=== PATIENT | male | born 1950 | race Caucasian/White ===

== ENCOUNTER 2017-07-31 21:41 | Inpatient (IN) | payer MEDICARE ==
[~2017-07-31] VITALS: Ht 188 cm; Wt 124.7 kg
[2017-07-31] MEDS ORDERED: ENOXAPARIN SOD 80 MG/0.8ML SYRINGE SC ONE (22:15)
[2017-07-31] MEDS ORDERED: IOHEXOL 350 MG/ML 100ML IJ ONE (22:22)
[2017-07-31 22:33] LABS: Basophils # (auto) 0 uL; Basophils % (auto) 0.5 % (0.0-2.0); Eosinophils # (auto) 0.3 uL; Eosinophils % (auto) 4.6 % (0.0-7.0); Hematocrit 36.1 % (41.0-53.0); Hemoglobin 12.8 g/dL (13.5-17.5); Lymphocytes # (auto) 1.4 uL; Lymphocytes % (auto) 20.3 % (10.0-50.0); Mean Corpuscular Hemoglobin 32.7 pg (28.0-32.0); Mean Corpuscular Hgb Conc. 35.5 g/dL (32.0-36.0); Monocytes # (auto) 0.7 uL; Monocytes % (auto) 10.2 % (0.0-12.0); Neutrophils # (auto) 4.3 uL; Neutrophils % (auto) 64.4 % (37.0-80.0); Nucleated Red Blood Cells % 0.2 %; Platelet Count (auto) 204 10^3/uL (140-450); Red Blood Cells 3.93 10^6/uL (4.5-5.90); Red Cell Distribution Width 12.5 % (11.8-14.3); White Blood Cell 6.7 10^3/uL (4.4-10.8)
[2017-07-31 22:43] LABS: Alanine Aminotransferase 58 U/L (16-61); Albumin 3.3 g/dL (3.4-5.0); Alkaline Phosphatase 71 U/L (45-117); Anion Gap 6 (5-15); Aspartate Aminotransferase 39 U/L (15-37); Bilirubin, Total 0.4 mg/dL (0.2-1.0); Blood Urea Nitrogen 15 mg/dL (7-18); Calcium 8.8 mg/dL (8.5-10.1); Carbon Dioxide 27 mmol/L (21-32); Chloride 103 mmol/L (98-107); GFR African American 111 mL/min; GFR Non-African American 92 mL/min; Glucose 107 mg/dL (74-106); Potassium 3.7 mmol/L (3.5-5.1); Sodium 136 mmol/L (136-145); Total Protein 7.2 g/dL (6.4-8.2)
[2017-07-31 22:53] LABS: INR 0.94 (0.9-1.15); Partial Thromboplastin Time 25.5 sec (22.64-33.71); Prothrombin Time 10.2 sec (9.37-12.3)
[2017-08-01] MEDS ORDERED: HEPARIN DRIP/D5W 100UNITS/ML 250 ML IV SCH (01:50)
[2017-08-01] MEDS ORDERED: HEPARIN SODIUM (PORCINE) 5000 UNITS/ML 1ML VIAL IV ONE (02:00)
[2017-08-01 02:16] LABS: Basophils # (auto) 0.1 uL; Basophils % (auto) 1.2 % (0.0-2.0); Eosinophils # (auto) 0.3 uL; Eosinophils % (auto) 4.3 % (0.0-7.0); Hematocrit 36.7 % (41.0-53.0); Hemoglobin 12.6 g/dL (13.5-17.5); Lymphocytes # (auto) 1.8 uL; Lymphocytes % (auto) 25.8 % (10.0-50.0); Mean Corpuscular Hemoglobin 31.4 pg (28.0-32.0); Mean Corpuscular Hgb Conc. 34.3 g/dL (32.0-36.0); Mean Corpuscular Volume 91.5 fL (80.0-100.0); Monocytes # (auto) 0.8 uL; Monocytes % (auto) 11.2 % (0.0-12.0); Neutrophils % (auto) 57.5 % (37.0-80.0); Nucleated Red Blood Cells % 0.2 %; Platelet Count (auto) 204 10^3/uL (140-450); Red Blood Cells 4.01 10^6/uL (4.5-5.90); Red Cell Distribution Width 12.3 % (11.8-14.3)
[2017-08-01] MEDS ORDERED: ACETAMINOPHEN 500 MG TAB PO PRN (02:30)
[2017-08-01] MEDS ORDERED: HYDROcodone-ACET 5/325MG TAB PO PRN (02:30)
[2017-08-01] MEDS ORDERED: ONDANSETRON HCL 4 MG/2 ML VIAL IV PRN (02:30)
[2017-08-01 02:47] LABS: INR 0.95 (0.9-1.15); Partial Thromboplastin Time 29.9 sec (22.64-33.71); Prothrombin Time 10.4 sec (9.37-12.3)
[2017-08-01 04:15] VITALS: BP 142/85
[2017-08-01] MEDS ORDERED: LISI-646 PO (05:37)
[2017-08-01] MEDS ORDERED: CLIN1CAP4 PO (05:37)
[2017-08-01 05:47] VITALS: BP 142/85
[2017-08-01] MEDS: CLINDAMYCIN HCL 150 MG CAP PO SCH ×3 (07:01→22:00)
[2017-08-01 07:13] LABS: Urine Bacteria NONE SEEN /hpf (None Seen); Urine Blood 2+ /uL (Negative); Urine Mucus FEW (None Seen); Urine Specific Gravity 1.023 (1.001-1.035); Urine WBC 2 /hpf (0 - 3)
[2017-08-01 09:00] VITALS: BP 143/82
[2017-08-01 09:01] LABS: INR 0.96 (0.9-1.15); Prothrombin Time 10.5 sec (9.37-12.3)
[2017-08-01 09:12] LABS: Partial Thromboplastin Time 50.9 sec (22.64-33.71)
[2017-08-01] MEDS: LISINOPRIL 20 MG TAB PO SCH (09:38)
[2017-08-01 13:00] VITALS: BP 132/78
[2017-08-01 14:22] LABS: INR 0.95 (0.9-1.15); Prothrombin Time 10.4 sec (9.37-12.3)
[2017-08-01] MEDS: HEPARIN DRIP/D5W 100UNITS/ML 250 ML IV SCH (14:59)
[2017-08-01 17:06] VITALS: BP 136/78
[2017-08-01 20:17] LABS: INR 0.95 (0.9-1.15); Partial Thromboplastin Time 50.7 sec (22.64-33.71); Prothrombin Time 10.4 sec (9.37-12.3)
[2017-08-01 22:00] VITALS: BP 141/50
[2017-08-02] MEDS: HEPARIN DRIP/D5W 100UNITS/ML 250 ML IV SCH ×2 (01:57→11:05)
[2017-08-02 02:55] LABS: Basophils # (auto) 0 uL; Basophils % (auto) 0.7 % (0.0-2.0); Eosinophils # (auto) 0.3 uL; Eosinophils % (auto) 4.5 % (0.0-7.0); Hematocrit 38.4 % (41.0-53.0); Hemoglobin 13.1 g/dL (13.5-17.5); Lymphocytes # (auto) 2.3 uL; Lymphocytes % (auto) 29.8 % (10.0-50.0); Mean Corpuscular Hemoglobin 31.4 pg (28.0-32.0); Mean Corpuscular Hgb Conc. 34.1 g/dL (32.0-36.0); Mean Corpuscular Volume 92.1 fL (80.0-100.0); Monocytes # (auto) 0.6 uL; Monocytes % (auto) 8.1 % (0.0-12.0); Neutrophils # (auto) 4.3 uL; Neutrophils % (auto) 56.9 % (37.0-80.0); Platelet Count (auto) 205 10^3/uL (140-450); Red Blood Cells 4.17 10^6/uL (4.5-5.90); Red Cell Distribution Width 12.8 % (11.8-14.3); White Blood Cell 7.6 10^3/uL (4.4-10.8)
[2017-08-02 03:04] LABS: INR 0.95 (0.9-1.15); Partial Thromboplastin Time 58.4 sec (22.64-33.71); Prothrombin Time 10.4 sec (9.37-12.3)
[2017-08-02 05:12] VITALS: BP 141/84
[2017-08-02] MEDS: CLINDAMYCIN HCL 150 MG CAP PO SCH ×3 (05:35→21:29)
[2017-08-02 09:00] VITALS: BP 138/78
[2017-08-02] MEDS ORDERED: APIXABAN 5 MG TAB PO SCH ×2 (09:15→12:00)
[2017-08-02] MEDS: LISINOPRIL 20 MG TAB PO SCH (09:17)
[2017-08-02] MEDS ORDERED: VANCOMYCIN 1GM/250ML 250 ML IV ONE (10:00)
[2017-08-02 12:00] VITALS: BP 123/71
[2017-08-02 13:47] LABS: INR 0.96 (0.9-1.15); Partial Thromboplastin Time 57.4 sec (22.64-33.71); Prothrombin Time 10.5 sec (9.37-12.3)
[2017-08-02 20:37] LABS: INR 0.96 (0.9-1.15); Partial Thromboplastin Time 59.6 sec (22.64-33.71); Prothrombin Time 10.5 sec (9.37-12.3)
[2017-08-02 23:07] VITALS: BP 123/74
[2017-08-03] MEDS: HEPARIN DRIP/D5W 100UNITS/ML 250 ML IV SCH ×2 (02:09→10:23)
[2017-08-03 04:30] VITALS: BP 123/68
[2017-08-03] MEDS: CLINDAMYCIN HCL 150 MG CAP PO SCH ×3 (05:56→21:42)
[2017-08-03 06:17] LABS: INR 0.96 (0.9-1.15); Prothrombin Time 10.5 sec (9.37-12.3)
[2017-08-03 06:23] LABS: Partial Thromboplastin Time 73.7 sec (22.64-33.71)
[2017-08-03 09:00] VITALS: BP 137/84
[2017-08-03 09:56] LABS: INR 0.97 (0.9-1.15); Prothrombin Time 10.6 sec (9.37-12.3)
[2017-08-03 10:05] LABS: Partial Thromboplastin Time 74.5 sec (22.64-33.71)
[2017-08-03] MEDS: LISINOPRIL 20 MG TAB PO SCH (10:23)
[2017-08-03 12:00] VITALS: BP 131/77
[2017-08-03] MEDS: ENOXAPARIN SOD 120 MG/0.8 ML SYRINGE SC SCH ×2 (14:00→21:43)
[2017-08-03 16:00] VITALS: BP 117/68
[2017-08-03 22:00] VITALS: BP 128/71
[2017-08-04 05:00] VITALS: BP 100/49
[2017-08-04] MEDS: CLINDAMYCIN HCL 150 MG CAP PO SCH ×3 (06:13→22:03)
[2017-08-04 06:18] LABS: Basophils # (auto) 0 uL; Basophils % (auto) 0.8 % (0.0-2.0); Eosinophils # (auto) 0.4 uL; Eosinophils % (auto) 6.7 % (0.0-7.0); Hematocrit 39.2 % (41.0-53.0); Hemoglobin 13.5 g/dL (13.5-17.5); Lymphocytes # (auto) 1.8 uL; Lymphocytes % (auto) 27.9 % (10.0-50.0); Mean Corpuscular Hemoglobin 31.8 pg (28.0-32.0); Mean Corpuscular Hgb Conc. 34.5 g/dL (32.0-36.0); Mean Corpuscular Volume 92.1 fL (80.0-100.0); Monocytes # (auto) 0.6 uL; Monocytes % (auto) 8.9 % (0.0-12.0); Neutrophils # (auto) 3.6 uL; Neutrophils % (auto) 55.7 % (37.0-80.0); Nucleated Red Blood Cells % 0.1 %; Platelet Count (auto) 205 10^3/uL (140-450); Red Blood Cells 4.26 10^6/uL (4.5-5.90); Red Cell Distribution Width 12.6 % (11.8-14.3); White Blood Cell 6.4 10^3/uL (4.4-10.8)
[2017-08-04 06:23] LABS: INR 0.96 (0.9-1.15); Partial Thromboplastin Time 30.3 sec (22.64-33.71); Prothrombin Time 10.5 sec (9.37-12.3)
[2017-08-04 09:26] VITALS: BP 126/77
[2017-08-04] MEDS: ENOXAPARIN SOD 120 MG/0.8 ML SYRINGE SC SCH ×2 (09:49→22:03)
[2017-08-04] MEDS: LISINOPRIL 20 MG TAB PO SCH (09:50)
[2017-08-04 12:38] VITALS: BP 123/71
[2017-08-04 17:05] VITALS: BP 129/69
[2017-08-04 22:00] VITALS: BP 130/74
[2017-08-05 05:00] VITALS: BP 114/68
[2017-08-05] MEDS: CLINDAMYCIN HCL 150 MG CAP PO SCH ×2 (05:38→14:23)
[2017-08-05 09:00] VITALS: BP 117/63
[2017-08-05] MEDS: ENOXAPARIN SOD 120 MG/0.8 ML SYRINGE SC SCH (09:34)
[2017-08-05] MEDS: LISINOPRIL 20 MG TAB PO SCH (09:34)
[2017-08-05 13:00] VITALS: BP 126/73
[2017-08-09] MEDS ORDERED: APIXABAN 2.5 MG TAB PO SCH (10:00)
== END 2017-08-05 16:18 | disposition home or self-care (01) | DRG 299 ==
LOC: ER 21:41 → TELE 21:42 → TELE-WESTW 08-01 03:55
PROVIDERS: ADMIT Nurse Practitioner Family; ATTEND Family Medicine
DX: I82.413 Acute embolism and thrombosis of femoral vein, bilateral (principal); I26.99 Other pulmonary embolism without acute cor pulmonale; D68.69 Other thrombophilia; L03.115 Cellulitis of right lower limb; I82.433 Acute embolism and thrombosis of popliteal vein, bilateral; D53.9 Nutritional anemia, unspecified; I82.443 Acute embolism and thrombosis of tibial vein, bilateral; C67.9 Malignant neoplasm of bladder, unspecified; E11.9 Type 2 diabetes mellitus without complications; R91.1 Solitary pulmonary nodule; E66.9 Obesity, unspecified; F03.90 Unspecified dementia, unspecified severity, without behavioral disturbance, psychotic disturbance, mood disturbance, and anxiety; I11.9 Hypertensive heart disease without heart failure; Z86.711 Personal history of pulmonary embolism; Z68.35 Body mass index [BMI] 35.0-35.9, adult; Z87.891 Personal history of nicotine dependence; Z79.899 Other long term (current) drug therapy; Z92.21 Personal history of antineoplastic chemotherapy
CPT/HCPCS: 36415; 71045; 71250; 80053; 81001; 83880; 84484; 85025; 85379; 85610; 85730; 87081; 93005; 93970; 96365; 96372